=== PATIENT | male | born 1995 | race Asian ===

== ENCOUNTER 2021-03-27 13:45 | Emergency (ER) | payer OTHER ==
[~2021-03-27] VITALS: Ht 182.9 cm; Wt 72.6 kg
--- NOTE | 2021-03-27 14:09 | ED General ---
General Stated Complaint: COVID POSITIVE/COUGH/CHEST PAIN Source of Information: Patient Exam Limitations: No Limitations History of Present Illness Date Seen by Provider: Mar 27, 2021 Time Seen by Provider: 14:05 Initial Comments To ER with reports that he tested positive for Covid yesterday. He presents today with some lower bilateral anterior chest pain. Pain is always there and is worsened by deep breathing. He has had a cough that is infrequent. He coughs about 5-7 times every 6 hours she states. No fevers. Timing/Duration: 1-2 Days Severity: Moderate Associated Systoms: Cough Allergies and Home Medications Allergies Coded Allergies: No Known Drug Allergies (Unverified , 03/27/21) Patient Home Medication List Home Medication List Reviewed: Yes Review of Systems Review of Systems Constitutional: see HPI EENTM: see HPI Respiratory: see HPI, cough Cardiovascular: no symptoms reported Genitourinary: no symptoms reported Musculoskeletal: no symptoms reported Skin: no symptoms reported Psychiatric/Neurological: No Symptoms Reported Hematologic/Lymphatic: No Symptoms Reported Immunological/Allergic: no symptoms reported Physical Exam Vital Signs Vital Signs - First Documented 03/27/21 13:55 Temp 36.8 Pulse 91 Resp 19 B/P (MAP) 136/93 (107) O2 Delivery Room Air Capillary Refill : Height, Weight, BMI Height: '" Weight: lbs. oz. kg; BMI Method: General Appearance: No Apparent Distress, WD/WN, Thin, Other (Alert and oriented no distress oxygen saturation is 100% room air) Eyes: Bilateral Eye Normal Inspection, Bilateral Eye PERRL, Bilateral Eye EOMI Neck: Full Range of Motion, Normal Inspection Respiratory: No Accessory Muscle Use, No Respiratory Distress Cardiovascular: Regular Rate, Rhythm, Normal Peripheral Pulses Gastrointestinal: Normal Bowel Sounds, Non Tender, Soft Extremity: Normal Capillary Refill, Normal Inspection Neurologic/Psychiatric: Alert, Oriented x3 Skin: Normal Color, Warm/Dry Progress/Results/Core Measures Suspected Sepsis SIRS Temperature: Pulse: Respiratory Rate: Laboratory Tests 03/27/21 14:03: White Blood Count 5.7 Blood Pressure / Mean: Laboratory Tests 03/27/21 14:03: Creatinine 1.01, Platelet Count 193, Total Bilirubin 0.4 Results/Orders Lab Results Laboratory Tests Test 03/27/21 14:03 Range/Units White Blood Count 5.7 4.3-11.0 10^3/uL Red Blood Count 4.94 4.30-5.52 10^6/uL Hemoglobin 14.8 13.3-17.7 g/dL Hematocrit 43 40-54 % Mean Corpuscular Volume 88 80-99 fL Mean Corpuscular Hemoglobin 30 25-34 pg Mean Corpuscular Hemoglobin Concent 34 32-36 g/dL Red Cell Distribution Width 11.7 10.0-14.5 % Platelet Count 193 130-400 10^3/uL Mean Platelet Volume 9.9 9.0-12.2 fL Immature Granulocyte % (Auto) 0 % Neutrophils (%) (Auto) 66 42-75 % Lymphocytes (%) (Auto) 16 12-44 % Monocytes (%) (Auto) 16 H 0-12 % Eosinophils (%) (Auto) 1 0-10 % Basophils (%) (Auto) 0 0-10 % Neutrophils # (Auto) 3.8 1.8-7.8 10^3/uL Lymphocytes # (Auto) 0.9 L 1.0-4.0 10^3/uL Monocytes # (Auto) 0.9 0.0-1.0 10^3/uL Eosinophils # (Auto) 0.1 0.0-0.3 10^3/uL Basophils # (Auto) 0.0 0.0-0.1 10^3/uL Immature Granulocyte # (Auto) 0.0 0.0-0.1 10^3/uL Sodium Level 138 135-145 MMOL/L Potassium Level 3.7 3.6-5.0 MMOL/L Chloride Level 103 98-107 MMOL/L Carbon Dioxide Level 24 21-32 MMOL/L Anion Gap 11 5-14 MMOL/L Blood Urea Nitrogen 9 7-18 MG/DL Creatinine 1.01 0.60-1.30 MG/DL Estimat Glomerular Filtration Rate 92 BUN/Creatinine Ratio 9 Glucose Level 111 H 70-105 MG/DL Calcium Level 9.1 8.5-10.1 MG/DL Corrected Calcium 8.8 8.5-10.1 MG/DL Magnesium Level 1.8 1.6-2.4 MG/DL Total Bilirubin 0.4 0.1-1.0 MG/DL Aspartate Amino Transf (AST/SGOT) 20 5-34 U/L Alanine Aminotransferase (ALT/SGPT) 18 0-55 U/L Alkaline Phosphatase 85 40-136 U/L C-Reactive Protein High Sensitivity 0.47 0.00-0.50 MG/DL Total Protein 7.3 6.4-8.2 GM/DL Albumin 4.4 3.2-4.5 GM/DL My Orders Orders - BRITT MIRZA APRN Cbc With Automated Diff (03/27/21 13:54) Magnesium (03/27/21 13:54) Chest 1 View, Ap/Pa Only (03/27/21 13:54) Ekg Tracing (03/27/21 13:54) Comprehensive Metabolic Panel (03/27/21 13:54) Myoglobin Serum (03/27/21 13:54) Protime With Inr (03/27/21 13:54) Partial Thromboplastin Time (03/27/21 13:54) O2 (03/27/21 13:54) Monitor-Rhythm Ecg Trace Only (03/27/21 13:54) Lipid Panel (03/28/21 06:00) Ed Iv/Invasive Line Start (03/27/21 13:54) Bnp [place]ven (03/27/21 13:54) Troponin I [place] (03/27/21 13:54) Hs C Reactive Protein (03/27/21 13:55) Ketorolac Injection (Toradol Injection) (03/27/21 14:15) Fibrin Degradation Products (03/27/21 14:03) Medications Given in ED Current Medications Medications Dose Ordered Sig/Parveen Route Start Time Stop Time Status Last Admin Dose Admin Ketorolac Tromethamine 15 mg ONCE ONCE IVP 03/27/21 14:15 03/27/21 14:16 DC 03/27/21 14:18 15 MG Vital Signs/I&O 03/27/21 13:55 Temp 36.8 Pulse 91 Resp 19 B/P (MAP) 136/93 (107) O2 Delivery Room Air Capillary Refill : Departure Communication (Admissions) Family Conversation His EKG shows sinus rhythm, no ectopy normal intervals rate of 77 NAME: TIFFANIEALEC ANTONINA MED REC#: [id number] PT STATUS: REG ER : 1995 PHYSICIAN: BRITT MIRZA APRN ADMIT DATE: 03/27/21/ER Draft Date of Exam:03/27/21 CHEST 1 VIEW, AP/PA ONLY EXAMINATION: Portable erect AP chest at 01:55 p.m. INDICATION: Cough, COVID positive. COMPARISON: None. FINDINGS: The heart size is within normal limits. The lungs are clear. There is no evidence for failure, pneumonia or for a pleural effusion. The mediastinum is not widened. The osseous structures are intact. IMPRESSION: There is no evidence for active disease. Dictated on workstation # [id number] Dict: 03/27/21 1408 Trans: 03/27/21 1428 [id number] [id number] Interpreted by: YUVAL RENTERIA MD Electronically signed by: Impression Primary Impression: Pleuritic chest pain Additional Impression: COVID-19 Disposition: 01 HOME, SELF-CARE Condition: Stable Departure-Patient Inst. Referrals: NO,LOCAL PHYSICIAN (PCP/Family) Primary Care Physician Patient Instructions: Pleuritic Chest Pain ED Add. Discharge Instructions: . Tylenol and ibuprofen for pain control. Return to ER for any concerns. Follow-up with your doctor next week. Images Torso/Trunk 1 - BRITT MIRZA SUPERVISOR SPEECH Mar 27, 2021 14:09
[2021-03-27 14:12] LABS: BASOPHILS % (AUTO) 0 % (0-10); EOSINOPHILS # (AUTO) 0.1 10^3/uL (0.0-0.3); EOSINOPHILS % (AUTO) 1 % (0-10); HEMATOCRIT 43 % (40-54); HEMOGLOBIN 14.8 g/dL (13.3-17.7); LYMPHOCYTES # (AUTO) 0.9 10^3/uL (1.0-4.0); LYMPHOCYTES % (AUTO) 16 % (12-44); MEAN CORPUSCULAR HEMOGLOBIN 30 pg (25-34); MEAN CORPUSCULAR HGB CONC 34 g/dL (32-36); MEAN CORPUSCULAR VOLUME 88 fL (80-99); MEAN PLATELET VOLUME 9.9 fL (9.0-12.2); MONOCYTES # (AUTO) 0.9 10^3/uL (0.0-1.0); MONOCYTES % (AUTO) 16 % (0-12); NEUTROPHILS # (AUTO) 3.8 10^3/uL (1.8-7.8); NEUTROPHILS % (AUTO) 66 % (42-75); PLATELET COUNT 193 10^3/uL (130-400); WHITE BLOOD COUNT 5.7 10^3/uL (4.3-11.0)
[2021-03-27] MEDS ORDERED: KETOROLAC 30 MG/ML VIAL IVP ONE (14:15)
[2021-03-27 14:29] LABS: ALBUMIN 4.4 GM/DL (3.2-4.5)
--- NOTE | 2021-03-27 14:29 | Diagnostic Imaging Report ---
EXAMINATION: Portable erect AP chest at 01:55 p.m. INDICATION: Cough, COVID positive. COMPARISON: None. FINDINGS: The heart size is within normal limits. The lungs are clear. There is no evidence for failure, pneumonia or for a pleural effusion. The mediastinum is not widened. The osseous structures are intact. IMPRESSION: There is no evidence for active disease. Dictated by: Dictated on workstation # [id number]
[2021-03-27 14:30] LABS: POTASSIUM 3.7 MMOL/L (3.6-5.0)
[2021-03-27 14:31] LABS: CALCIUM 9.1 MG/DL (8.5-10.1)
[2021-03-27 14:32] LABS: TOTAL PROTEIN 7.3 GM/DL (6.4-8.2)
[2021-03-27 14:34] LABS: BILIRUBIN,TOTAL 0.4 MG/DL (0.1-1.0)
[2021-03-27 14:36] LABS: CREATININE SERUM 1.01 MG/DL (0.60-1.30)
[2021-03-27 14:38] LABS: MAGNESIUM 1.8 MG/DL (1.6-2.4)
[2021-03-27 14:48] LABS: FIBRIN DEGRADATION PRODUCTS 0.25 UG/ML (0.00-0.49); INR 1.1 (0.8-1.4); PROTHROMBIN TIME PATIENT 14.2 SEC (12.2-14.7)
[2021-03-27 15:45] VITALS: BP 111/71
== END 2021-03-27 15:45 | disposition home or self-care (01) ==
LOC: ER 13:53
DX: U07.1 COVID-19 (principal)
CPT/HCPCS: 71045; 80053; 83735; 83874; 83880; 84484; 85025; 85379; 85610; 85730; 86141; 93005; 93041